=== PATIENT | female | born 1970 | race Two or more races ===

== ENCOUNTER 2020-03-03 12:17 | Outpatient (CLI) | payer OTHER | END 2020-03-03 12:30 | disposition home or self-care (01) | LOC: SONOGRAMA 12:17 | DX: E03.8 Other specified hypothyroidism (principal); E04.1 Nontoxic single thyroid nodule ==

== ENCOUNTER 2021-02-26 14:43 | Emergency (ER) | payer OTHER ==
[~2021-02-26] VITALS: Ht 152.4 cm; Wt 65.8 kg
[2021-02-26] MEDS ORDERED: LIPOFEN50 MG (15:03)
[2021-02-26] MEDS ORDERED: NASAL MIST126 ML (15:03)
[2021-02-26] MEDS ORDERED: NORFLEX100MG PO (16:36)
[2021-02-26] MEDS ORDERED: DICLOFENAC SODI75 MG PO (16:36)
== END 2021-02-26 16:48 | disposition home or self-care (01) ==
LOC: ER 14:43
DX: M75.82 Other shoulder lesions, left shoulder (principal)

== ENCOUNTER 2021-08-31 08:00 | Outpatient (CLI) | payer OTHER ==
[~2021-08-31 08:00] MED LIST: DICLOFENAC SODI75 MG PO; LIPOFEN50 MG; NASAL MIST126 ML; NORFLEX100MG PO
== END 2021-08-31 08:55 | disposition home or self-care (01) ==
LOC: PPH VACUNA 08:00
PROVIDERS: ATTEND Emergency Medicine Pediatric Emergency Medicine
DX: Z23 Encounter for immunization (principal)

== ENCOUNTER 2021-10-03 12:10 | Outpatient (CLI) | payer OTHER | END 2021-10-03 15:00 | disposition home or self-care (01) | LOC: LAB 12:10 | PROVIDERS: ATTEND Emergency Medicine Pediatric Emergency Medicine | DX: Z03.818 Encounter for observation for suspected exposure to other biological agents ruled out (principal) ==

== ENCOUNTER 2023-09-26 07:45 | Inpatient (IN) | payer OTHER ==
[~2023-09-26] VITALS: Ht 152.4 cm; Wt 64.4 kg
[2023-09-26 12:55] LABS: HEMATOCRIT 39.2 % (36.0-45.00); HEMOGLOBIN 13.3 g/dL (12.0-15.00); MEAN CELL VOLUME 84.2 fL (80.00-100.00); MEAN CORPUSCULAR HEMOGLOBIN 28.6 pg (27.00-32.0); PLATELET COUNT 376 K/uL (150-450); RED BLOOD COUNT 4.66 M/uL (4.00-6.00); RED CELL DISTRIBUTION WIDTH 16.1 % (11.5-14.5)
[2023-09-26 12:59] LABS: URINE APPEARANCE Clear; URINE BILIRRUBIN Negative (NEGATIVE); URINE BLOOD Negative; URINE COLOR Yellow; URINE GLUCOSE Negative (NEGATIVE); URINE LEUKOCYTE Negative; URINE NITRATE Negative; URINE PROTEIN Negative (NEGATIVE); URINE UROBILINOGEN 0.2 E.U./dl
[2023-09-26 13:02] LABS: URINE BACTERIA 545.4 uL (0.0-1933); URINE EPITHELIAL CELLS 17.5 uL (0.0-38.8); URINE WBC 6.3 uL (0.0-23.2)
[2023-09-26 13:40] LABS: ALBUMIN 3.7 gm/dL (3.4-5.0); BILIRUBIN TOTAL 0.36 mg/dL (0.3-1.2); CALCIUM 9.7 mg/dL (8.5-10.1); CREATININE SERUM 0.66 mg/dL (0.55-1.02); GFR 94.42; GLOBULINA 3.9 G/DL (2.4-3.5); INR < 0.93; POTASSIUM 4.12 mEq/L (3.5-5.1); PROTHROMBIN TIME 9.8 SECONDS (9.0-11.5); TOTAL PROTEIN 7.6 gm/dL (6.4-8.2)
[2023-09-26] MEDS ORDERED: PROTONIX20 MG PO (13:48)
[2023-09-30 17:48] LABS: HEMOGLOBIN 11.4 g/dL (12.0-15.00); MEAN CORPUSCULAR HEMOGLOBIN 27.8 pg (27.00-32.0); MEAN CORPUSCULAR HGB CONC 32.7 g/dl (32.0-36.0); PLATELET COUNT 325 K/uL (150-450); RED BLOOD COUNT 4.12 M/uL (4.00-6.00); RED CELL DISTRIBUTION WIDTH 15.7 % (11.5-14.5)
[2023-09-30 18:11] LABS: CALCIUM 8.7 mg/dL (8.5-10.1); CREATININE SERUM 0.69 mg/dL (0.55-1.02); GFR 89.69; POTASSIUM 3.82 mEq/L (3.5-5.1)
[2023-10-01 03:26] LABS: HEMATOCRIT 30.5 % (36.0-45.00); HEMOGLOBIN 10.2 g/dL (12.0-15.00); MEAN CELL VOLUME 84.4 fL (80.00-100.00); MEAN CORPUSCULAR HEMOGLOBIN 28.3 pg (27.00-32.0); MEAN CORPUSCULAR HGB CONC 33.5 g/dl (32.0-36.0); PLATELET COUNT 331 K/uL (150-450); RED BLOOD COUNT 3.61 M/uL (4.00-6.00); RED CELL DISTRIBUTION WIDTH 15.9 % (11.5-14.5)
[2023-10-01 03:33] LABS: CALCIUM 8.1 mg/dL (8.5-10.1); CREATININE SERUM 0.67 mg/dL (0.55-1.02); GFR 92.79; POTASSIUM 3.84 mEq/L (3.5-5.1)
== END 2023-10-02 09:42 | disposition home or self-care (01) | DRG 743 ==
LOC: O/R 09-30 06:57 → SURG 09-30 07:45 → OB/GYN 09-30 12:11
PROVIDERS: Obstetrics & Gynecology; Plastic Surgery; ADMIT Obstetrics & Gynecology Gynecologic Oncology; ATTEND Obstetrics & Gynecology Gynecologic Oncology
PROC: 0UT20ZZ Resection of Bilateral Ovaries, Open Approach (ICD-10-PCS; 2023-09-30)
PROC: 0DNW0ZZ Release Peritoneum, Open Approach (ICD-10-PCS; 2023-09-30)
PROC: 0J083ZZ Alteration of Abdomen Subcutaneous Tissue and Fascia, Percutaneous Approach (ICD-10-PCS; 2023-09-30)
PROC: 0HB7XZZ Excision of Abdomen Skin, External Approach (ICD-10-PCS; 2023-09-30)
PROC: 0UT90ZZ Resection of Uterus, Open Approach (ICD-10-PCS; principal; 2023-09-30 09:45)
PROC: 0UT70ZZ Resection of Bilateral Fallopian Tubes, Open Approach (ICD-10-PCS; 2023-09-30 09:45)
DX: D25.1 Intramural leiomyoma of uterus (principal); N83.01 Follicular cyst of right ovary; N83.02 Follicular cyst of left ovary; N72 Inflammatory disease of cervix uteri; N80.03 Adenomyosis of the uterus; N84.0 Polyp of corpus uteri; E65 Localized adiposity; L91.0 Hypertrophic scar

== ENCOUNTER 2024-09-21 12:53 | Emergency (ER) | payer OTHER ==
[~2024-09-21] VITALS: Ht 152.4 cm; Wt 63.5 kg
[~2024-09-21 12:53] MED LIST changes: +PROTONIX20 MG PO
[2024-09-21 15:10] LABS: HEMATOCRIT 37.2 % (36.0-45.00); HEMOGLOBIN 12.6 g/dL (12.0-15.00); MEAN CELL VOLUME 89.2 fL (80.00-100.00); MEAN CORPUSCULAR HEMOGLOBIN 30.3 pg (27.00-32.0); MEAN CORPUSCULAR HGB CONC 33.9 g/dl (32.0-36.0); PLATELET COUNT 409 K/uL (150-450); RED BLOOD COUNT 4.18 M/uL (4.00-6.00); RED CELL DISTRIBUTION WIDTH 13.6 % (11.5-14.5)
[2024-09-21 15:29] LABS: CALCIUM 10.1 mg/dL (8.5-10.1); CREATININE SERUM 0.63 mg/dL (0.55-1.02); GFR 99.23; POTASSIUM 3.85 mEq/L (3.5-5.1)
[2024-09-21 16:07] LABS: PH,URINE 6.5 (5.0-8.0); URINE APPEARANCE Clear; URINE BILIRRUBIN Negative (NEGATIVE); URINE BLOOD Small; URINE COLOR Yellow; URINE GLUCOSE Negative (NEGATIVE); URINE KETONE Negative (NEGATIVE); URINE LEUKOCYTE Negative; URINE NITRATE Negative; URINE PROTEIN Negative (NEGATIVE)
[2024-09-21 16:16] LABS: URINE BACTERIA 59.1 uL (0.0-1933); URINE EPITHELIAL CELLS 2.6 uL (0.0-38.8); URINE RBC 52.1 uL (0.0-20.8)
[2024-09-21 16:17] LABS: URINE WBC 1.3 uL (0.0-23.2)
[2024-09-21] MEDS ORDERED: FAMOTIDINE/PF 20 MG in 0.9 % SODIUM CHLORIDE 8 ML IV PUSH STA (19:18)
[2024-09-21] MEDS ORDERED: LEVSIN/SL0.125 MG SL (19:27)
[2024-09-21] MEDS ORDERED: PROTONIX40 MG PO (19:27)
[2024-09-21] MEDS ORDERED: CIPRO500 MG PO (19:27)
[2024-09-21] MEDS ORDERED: METRONIDAZOLE500 MG PO (19:27)
[2024-09-21] MEDS ORDERED: PIPERACILLIN/TAZOBACTAM SODIUM 3.375 GM VIAL IV ONE (19:30)
== END 2024-09-21 20:27 | disposition home or self-care (01) ==
LOC: ER 12:55
PROVIDERS: Emergency Medicine
DX: K57.92 Diverticulitis of intestine, part unspecified, without perforation or abscess without bleeding (principal); R10.9 Unspecified abdominal pain; Z88.2 Allergy status to sulfonamides
CPT/HCPCS: 36415; 74177; Q9965